=== PATIENT | female | born 1975 ===

== ENCOUNTER → 2018-04-27 13:09 | Outpatient (REF) | payer OTHER, MEDICAID, SELFPAY ==
[2018-04-27 13:22] LABS: Add Manual Diff / Slide Review NO; Basophils Percent Auto 0.6 % (0-2); Hematocrit 38.7 % (36-46); Hemoglobin 13.2 g/dL (12.0-16.0); Lymphocytes Percent Auto 35.3 % (25-40); Mean Corpuscular HGB Conc 34.1 % (30-36); Mean Corpuscular Hemoglobin 30.2 PG (26-34); Mean Corpuscular Volume 88.7 fL (80-100); Monocytes Percent Auto 8.7 % (3-14); Neutrophils Absolute Auto 2700 /uL (1500-7000); Neutrophils Percent Auto 53.4 % (50-75); Platelet Count 210 X10^3/uL (150-400); Red Blood Cell Count 4.36 X10^6/uL (4.0-5.2); Red Cell Distribution Width 13.4 % (11.6-14.8)
[2018-04-27 13:28] LABS: Alanine Aminotransferase 33 IU/L (9-52); Albumin 4.5 g/dL (3.5-5.0); Albumin Globulin Ratio 1.5 (1.0-2.8); Alkaline Phosphatase 71 U/L (38-126); Aspartate Aminotransferase 26 IU/L (14-36); Bilirubin Total 0.4 mg/dL (0.2-1.3); Blood Urea Nitrogen 15 mg/dL (7-17); Calcium 9.7 mg/dL (8.4-10.2); Carbon Dioxide 29 mmol/L (22-32); Chloride 102 mmol/L (98-107); Estimated Glomerular Filt Rate > 60.0 mL/min (>60); Glucose 93 mg/dL (70-100); HEMOLYSIS < 15 (0-50); Potassium 4.7 mmol/L (3.4-5.1); Sodium 139 mmol/L (137-145); Total Protein 7.5 g/dL (6.3-8.2)
[2018-04-27 13:44] LABS: Free T3, Triiodothyronine Free 7.32 pg/mL (2.77-5.27); Free T4, Direct Thyroxine 1.12 ng/dL (0.78-2.19); Hemoglobin A1C% w Est Avg Glu 4.9 % (4.0-6.0)
[2018-04-27 13:58] LABS: Thyroid Stimulating Hormone 0.08 uIU/mL (0.47-4.68)
== END ==
LOC: LAB 13:09
PROVIDERS: Visit Provider Naturopath
DX: R79.89 Other specified abnormal findings of blood chemistry (principal); R68.89 Other general symptoms and signs; R73.09 Other abnormal glucose; R94.6 Abnormal results of thyroid function studies
CPT/HCPCS: 36415; 80053; 83036; 84439; 84443; 84481; 85025

== ENCOUNTER → 2020-12-25 10:17 | Outpatient (CLI) | payer OTHER, SELFPAY ==
[2020-12-25 20:28] LABS: COVID19 - ORCAS (NP or Nasal) Negative (Negative)
== END ==
PROVIDERS: PCP Family Medicine; Visit Provider Family Medicine
DX: Z20.822 Contact with and (suspected) exposure to COVID-19 (principal)
CPT/HCPCS: U0003